=== PATIENT | male | born 1970 | race Caucasian/White ===

== ENCOUNTER 2018-04-22 10:47 | Day surgery (SDC) | payer OTHER ==
[2018-04-18 10:45] VITALS: BMI 27.3
[~2018-04-22 10:47] MED LIST: LACTATED RINGERS 1,000 ML IV SCH; LIDOCAINE 1% 20 ML VIAL (10MG/ML) FOR IV START INTRADERMA PRN
[2018-04-22 11:13] VITALS: RESP 16; TEMP 98
[2018-04-22] MEDS ORDERED: MIDAZOLAM 2 MG/2 ML VIAL ONE (12:59)
[2018-04-22] MEDS ORDERED: LIDOCAINE 1% INJ 10MG/ML (20 ML MDV) ONE (12:59)
[2018-04-22] MEDS ORDERED: PROPOFOL 10 MG/ML 20 ML VIAL IV ONE (12:59)
[2018-04-22] MEDS ORDERED: fentaNYL (PF) 50 MCG/ML 2 ML AMP ONE (12:59)
[2018-04-22 13:35] VITALS: BP 102/66; PULSE 82
--- NOTE | 2018-04-22 13:36 | P.PCN ---
Date of Procedure: 04/22/18 Procedure(s) Performed: Procedure: Colonoscopy and polypectomy. Preoperative diagnosis: Screening for neoplasia. Patient has history of polyps. Postoperative diagnosis: Small/distal sigmoid polyp snared but no large polyps or cancer. Preparation: HalfLytely prep. Sedation: Was provided by anesthesia. Brief clinical history: The patient is a 47-year-old male who is scheduled for this evaluation because of history of polyps. He had a prior colonoscopy around 5 years ago. He has no abdominal complaints, bleeding or anemia. Procedure: With the patient on his left lateral decubitus and after informed consent and adequate sedation, the perianal area was inspected and it did not show any fissures or fistulas. There were no masses felt on digital rectal examination. The Olympus CFQ 160L video colonoscope was then inserted in the rectum in the usual fashion and advanced to the cecum. There was a small/ diminutive polyp noted in the distal sigmoid which was snared and retrieved by suction but there were no large polyps or cancer. The mucosa appeared healthy. No obvious diverticular disease or bleeding. I retroflexed the endoscope in the rectum before the endoscope was withdrawn. The patient tolerated the procedure well. Plan: The patient was reassured. Discussed dietary measures and local care for hemorrhoids. He will follow-up with you as planned and I recommended repeat exam in 5 years.
== END 2018-04-22 14:00 | disposition home or self-care (01) ==
LOC: ORWHC2ENDO 10:47
DX: Z12.11 Encounter for screening for malignant neoplasm of colon (principal); D12.5 Benign neoplasm of sigmoid colon; G89.29 Other chronic pain; M54.9 Dorsalgia, unspecified; Z80.0 Family history of malignant neoplasm of digestive organs; Z79.891 Long term (current) use of opiate analgesic; Z79.899 Other long term (current) drug therapy; Z72.0 Tobacco use
CPT/HCPCS: 45385; J2250; J2001; J3010; J2704; 88305

== ENCOUNTER → 2020-03-07 | Outpatient (CLI) | payer BC, OTHER ==
--- NOTE | 2020-03-07 22:41 | MR ---
MRI CERVICAL SPINE: CLINICAL HISTORY: Neck pain per order. Pain causing left arm soreness numbness and tingling for 3 wee ks extending into fingers per patient. TECHNIQUE: Multiplanar, multisequence imaging of the cervical spine is performed without IV contrast. COMPARISON: Two-view spine x-ray August 17, 2014. FINDINGS: Sagittal images of the cervical spine show the craniocervical junction to appear within nor mal limits. The cervical and upper thoracic spinal cord is normal in course, caliber, and signal. St able grade 1 retrolisthesis C3 on C4. Stable mild disc space narrowing C6-C7 level otherwise the rosa tebral body and intravertebral disk heights are normal. The bone marrow signal intensity is within n ormal limits. Axial images show the C2-C3 level to appear within normal limits. Axial images at C3-C4 level show uncovertebral facet degenerative changes along with right paracentra l disc protrusion mildly facing anterior thecal sac, there is asymmetric moderate left-sided neural f oraminal narrowing. Axial images at C4-C5 level show left greater than right uncovertebral facet degenerative changes sukhjinder aterally causing mild bilateral neural foraminal narrowing. Axial images at the C5-C6 level appear within normal limits. Axial images at the C6-C7 levels with broad-based posterior disc protrusion effaces the anterior thec al sac nearly up to ventral surface of spinal cord with additional left foraminal disc protrusion cau sing asymmetric moderate to severe left-sided neural foraminal narrowing inferiorly axial image 17 an d sagittal image 4. Mild right-sided neural foraminal narrowing is noted. Axial images at C7-T1 level appear within normal limits. IMPRESSION: Stable spondylolisthesis C3-C4 level. Multilevel degenerative changes as detailed above. Most prominent findings noted C3-C4 and C6-C7 level. Attention to C6-C7 level where eccentric disc pr otrusion causes asymmetric [id number] left-sided neural foraminal narrowing and may be accoun ting for patient's left-sided radiculopathy type symptoms.
== END | disposition home or self-care (01) ==
LOC: RADMRIMAIN 21:45
PROVIDERS: ATTEND Internal Medicine
DX: M48.02 Spinal stenosis, cervical region (principal); M50.223 Other cervical disc displacement at C6-C7 level; M43.12 Spondylolisthesis, cervical region; M47.812 Spondylosis without myelopathy or radiculopathy, cervical region
CPT/HCPCS: 72141

== ENCOUNTER 2020-05-19 12:15 | Emergency (ER) | payer BC, OTHER ==
[2020-05-19 12:28] VITALS: RESP 18
--- NOTE | 2020-05-19 13:01 | ED ---
General Adult HPI - General Chief complaint: Syncope Stated complaint: Near Syncope Time Seen by Provider: 05/19/20 12:38 Source: patient Mode of arrival: wheelchair Limitations: no limitations - History of Present Illness Initial comments: Patient presents to the ED for evaluation after having a syncopal episode this afternoon. Patient states that he was with some friends at a bar this afternoon when he began to feel "warm and weak". He states that he then went outside to "get some air" when he reportedly had a syncopal episode. Patient states that he sat himself down on the ground before having his syncopal episode, and he denies trauma/injury or fall. Patient states that his friends witnessed his syncopal episode. Patient admits to drinking one beer while at the bar today and he denies any drug abuse. Patient states that he still feels somewhat weak, but much better than earlier today. Patient states that he ate a donut earlier today. Patient denies having any pain, fever or chills, headache, focal numbness/weakness/neuro deficit, visual changes, neck/back/extremity pain, chest pain, dyspnea, cough or cold symptoms, palpitations, abdominal pain, nausea/vomiting/diarrhea, bloody or melanotic stool, dysuria or urinary symptoms , or any other symptoms or complaints. - Related Data Home Medications Medication Instructions Recorded Confirmed Cyclobenzaprine [Flexeril] 10 mg PO HS 04/18/18 04/22/18 HYDROcodone/APAP 10-325MG [[place] 1 tab PO DIRECTED 04/22/18 04/22/18 10-325] Allergies Allergy/AdvReac Type Severity Reaction Status Date / Time No Known Allergies Allergy Verified 05/19/20 12:28 Review of Systems ROS Statement: Those systems with pertinent positive or pertinent negative responses have been documented in the HPI. ROS Other: All systems not noted in ROS Statement are negative. Past Medical History Past Medical History: Musculoskeletal Disorder Additional Past Medical History / Comment(s): chronic back pain History of Any Multi-Drug Resistant Organisms: None Reported Past Surgical History: No Surgical Hx Reported Additional Past Surgical History / Comment(s): colonoscopy Past Anesthesia/Blood Transfusion Reactions: No Reported Reaction Past Psychological History: No Psychological Hx Reported Smoking Status: Current every day smoker Past Alcohol Use History: Occasional Past Drug Use History: None Reported - Past Family History Father Family Medical History: Cancer Additional Family Medical History / Comment(s): Colon CA General Exam Limitations: no limitations General appearance: alert, in no apparent distress Head exam: Present: atraumatic, normocephalic Eye exam: Present: normal appearance, PERRL, EOMI ENT exam: Present: mucous membranes moist Neck exam: Present: other (Trachea is in midline). Absent: tenderness Respiratory exam: Present: normal lung sounds bilaterally. Absent: respiratory distress, wheezes, rales, rhonchi Cardiovascular Exam: Present: regular rate, normal rhythm, normal heart sounds, other (Normal radial pulses bilaterally) GI/Abdominal exam: Present: soft. Absent: distended, tenderness, guarding Extremities exam: Present: full ROM. Absent: tenderness, pedal edema, calf tenderness Neurological exam: Present: alert, oriented X3, CN II-XII intact. Absent: motor sensory deficit Psychiatric exam: Present: normal affect, normal mood Skin exam: Present: warm, dry, intact, normal color Course Vital Signs 05/19/20 12:26 Temperature 98.0 F Pulse Rate 98 Respiratory 18 Rate Blood Pressure 108/64 O2 Sat by Pulse 93 L Oximetry - Reevaluation(s) Reevaluation #1: 05/19/20 15:34 Patient states that he is now feeling better, and he denies development of any new symptoms while in the ED. Patient remains alert and breathing comfortably. Patient's vital signs are stable. Patient is aware of his test results, and he feels comfortable going home at this time. Patient was counseled about syncope, and he was clearly explained return and follow-up instructions. He was instructed to have a low threshold for return to the ED should he develop new or worsening symptoms. He was clearly explained return and follow-up instructions, and he was instructed to follow up closely with his primary care provider. He feels comfortable with this plan. 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 Patient's EKG, chest x-ray and labs are all fairly unremarkable. Patient is [place] syncope rule negative. I do not feel that hospital admission or any further monitoring is necessary at this time. Patient was counseled about syncope, and he was clearly explained return and follow-up instructions. Patient feels comfortable going home. Will discharge patient home at this time. Patient to get a ride home from the ED today. - Lab Data Result diagrams: 05/19/20 11:05/19/20 13:20 Lab Results 05/19/20 05/19/20 05/19/20 Range/Units :19 05: 13:20 WBC 14.5 H (3.8-10.6) k/uL RBC 5.16 (4.30-5.90) m/uL Hgb 15.1 (13.0-17.5) gm/dL Hct 45.2 (39.0-53.0) % MCV 87.5 (80.0-100.0) fL MCH 29.3 (25.0-35.0) pg MCHC 33.5 (31.0-37.0) g/dL RDW 13.2 (11.5-15.5) % Plt Count 375 (150-450) k/uL MPV 8.0 Neutrophils % 69 % Lymphocytes % 23 % Monocytes % 4 % Eosinophils % 2 % Basophils % 1 % Neutrophils # 10.0 H (1.3-7.7) k/uL Lymphocytes # 3.3 (1.0-4.8) k/uL Monocytes # 0.6 (0-1.0) k/uL Eosinophils # 0.4 (0-0.7) k/uL Basophils # 0.1 (0-0.2) k/uL PT 9.8 (9.0-12.0) sec INR 0.9 (<1.2) APTT 23.6 (22.0-30.0) sec Sodium 137 (137-145) mmol/L Potassium 4.3 (3.5-5.1) mmol/L Chloride 105 (98-107) mmol/L Carbon Dioxide 26 (22-30) mmol/L Anion Gap 6 mmol/L BUN 12 (9-20) mg/dL Creatinine 0.82 (0.66-1.25) mg/dL Est GFR (CKD-EPI)AfAm >90 (>60 ml/min/1.73 sqM) Est GFR (CKD-EPI)NonAf >90 (>60 ml/min/1.73 sqM) Glucose 101 H (74-99) mg/dL Calcium 8.9 (8.4-10.2) mg/dL Magnesium 1.8 (1.6-2.3) mg/dL Total Bilirubin 0.2 (0.2-1.3) mg/dL AST 21 (17-59) U/L ALT 16 (4-49) U/L Alkaline Phosphatase 63 (38-126) U/L Troponin I (0.000-0.034) ng/mL Total Protein 6.6 (6.3-8.2) g/dL Albumin 3.8 (3.5-5.0) g/dL Serum Alcohol <10 mg/dL 05/19/20 Range/Units 13:20 WBC (3.8-10.6) k/uL RBC (4.30-5.90) m/uL Hgb (13.0-17.5) gm/dL Hct (39.0-53.0) % MCV (80.0-100.0) fL MCH (25.0-35.0) pg MCHC (31.0-37.0) g/dL RDW (11.5-15.5) % Plt Count (150-450) k/uL MPV Neutrophils % % Lymphocytes % % Monocytes % % Eosinophils % % Basophils % % Neutrophils # (1.3-7.7) k/uL Lymphocytes # (1.0-4.8) k/uL Monocytes # (0-1.0) k/uL Eosinophils # (0-0.7) k/uL Basophils # (0-0.2) k/uL PT (9.0-12.0) sec INR (<1.2) APTT (22.0-30.0) sec Sodium (137-145) mmol/L Potassium (3.5-5.1) mmol/L Chloride (98-107) mmol/L Carbon Dioxide (22-30) mmol/L Anion Gap mmol/L BUN (9-20) mg/dL Creatinine (0.66-1.25) mg/dL Est GFR (CKD-EPI)AfAm (>60 ml/min/1.73 sqM) Est GFR (CKD-EPI)NonAf (>60 ml/min/1.73 sqM) Glucose (74-99) mg/dL Calcium (8.4-10.2) mg/dL Magnesium (1.6-2.3) mg/dL Total Bilirubin (0.2-1.3) mg/dL AST (17-59) U/L ALT (4-49) U/L Alkaline Phosphatase (38-126) U/L Troponin I <0.012 (0.000-0.034) ng/mL Total Protein (6.3-8.2) g/dL Albumin (3.5-5.0) g/dL Serum Alcohol mg/dL - Radiology Data Radiology results: image reviewed (Chest x-ray is negative) Disposition Clinical Impression: Syncope Disposition: HOME SELF-CARE Condition: Stable Instructions (If sedation given, give patient instructions): Syncope (ED) Additional Instructions: Return to the ER immediately should you develop increased dizziness, fainting/passing out, any significant pain, chest pain, shortness of breath/trou ble breathing, vomiting, or new or worsening symptoms. Follow up closely with your primary care provider. Is patient prescribed a controlled substance at d/c from ED?: No Referrals: Sabrina Merchant MD [Primary Care Provider] - 1-2 days Time of Disposition: 15:39
[2020-05-19] MEDS ORDERED: SODIUM CHLORIDE 0.9% 1,000 ML IV ONE (13:17)
--- NOTE | 2020-05-19 13:46 | XR ---
EXAMINATION TYPE: XR chest 2V DATE OF EXAM: 05/19/2020 COMPARISON: Chest x-ray March 20, 2016 HISTORY: Dizziness and weakness. TECHNIQUE: Frontal and lateral views of the chest are obtained. FINDINGS: Overlying EKG leads are redemonstrated. There is no focal air space opacity, pleural effusi on, or pneumothorax seen. The cardiac silhouette size is within normal limits. The osseous structu res are intact. IMPRESSION: No acute cardiopulmonary process. No significant change from prior.
[2020-05-19 14:24] LABS: Basophils # (A) 0.1 k/uL (0-0.2); Basophils % (A) 1 %; Eosinophils # (A) 0.4 k/uL (0-0.7); Eosinophils % (A) 2 %; HCT 45.2 % (39.0-53.0); HGB 15.1 gm/dL (13.0-17.5); Lymphocytes # (A) 3.3 k/uL (1.0-4.8); Lymphocytes % (A) 23 %; MCH 29.3 pg (25.0-35.0); MCHC 33.5 g/dL (31.0-37.0); MCV 87.5 fL (80.0-100.0); Monocytes # (A) 0.6 k/uL (0-1.0); Monocytes % (A) 4 %; Neutrophils % (A) 69 %; Platelet Count 375 k/uL (150-450); RBC 5.16 m/uL (4.30-5.90); RDW 13.2 % (11.5-15.5); WBC 14.5 k/uL (3.8-10.6)
[2020-05-19 14:36] LABS: INR 0.9 (<1.2); Partial Thromboplastin Time 23.6 sec (22.0-30.0); Prothrombin Time 9.8 sec (9.0-12.0)
[2020-05-19 15:03] LABS: ALT 16 U/L (4-49); AST 21 U/L (17-59); African American GFR (CKD) >90 (>60 ml/min/1.73 sqM); Albumin 3.8 g/dL (3.5-5.0); Alcohol <10 mg/dL; Alkaline Phosphatase 63 U/L (38-126); Anion Gap 6 mmol/L; Blood Urea Nitrogen 12 mg/dL (9-20); Calcium 8.9 mg/dL (8.4-10.2); Carbon Dioxide 26 mmol/L (22-30); Chloride 105 mmol/L (98-107); Glucose 101 mg/dL (74-99); Magnesium 1.8 mg/dL (1.6-2.3); Non-African American GFR(CKD) >90 (>60 ml/min/1.73 sqM); Potassium 4.3 mmol/L (3.5-5.1); Sodium 137 mmol/L (137-145); Total Bilirubin 0.2 mg/dL (0.2-1.3); Total Protein 6.6 g/dL (6.3-8.2)
[2020-05-19 15:52] VITALS: BP 104/88; PULSE 93; TEMP 98.6
== END 2020-05-19 15:51 | disposition home or self-care (01) ==
LOC: EC 12:15
DX: R55 Syncope and collapse (principal); F17.200 Nicotine dependence, unspecified, uncomplicated
CPT/HCPCS: 36415; 71046; 80053; 80320; 83735; 84484; 85025; 85610; 85730; 93005; 99284

== ENCOUNTER → 2023-07-19 | Outpatient (CLI) | payer BC, OTHER ==
--- NOTE | 2023-07-19 10:01 | XR ---
EXAMINATION TYPE: XR cervical spine comp DATE OF EXAM: 07/19/2023 9:44 AM CLINICAL INDICATION:Male, 53 years old with history of M50.30 OTHER CERVICAL DISC DEGENERATION, UNSP CERV; PHH COMPARISON: None TECHNIQUE: The cervical spine was imaged in frontal, lateral, odontoid and bilateral oblique. FINDINGS: The osseous structures show normal alignment without evidence of an acute fracture. There are osteoph ytes noted throughout the cervical spine on the anterior and lateral aspects of the vertebral bodies. The intervertebral disk spaces are narrowed at multiple levels. Pedicles are intact. Soft tissues a re within normal limits. The odontoid appears intact. IMPRESSION: 1. No fracture or dislocation. 2. Mild degenerative disc disease changes of the cervical spine.
--- NOTE | 2023-07-19 11:08 | XR ---
EXAMINATION TYPE: XR lumbosacral spine min 4V DATE OF EXAM: 07/19/2023 9:44 AM CLINICAL INDICATION:Male, 53 years old with history of M50.30 OTHER CERVICAL DISC DEGENERATION, UNSP CERV; PHH COMPARISON: None TECHNIQUE: XR lumbosacral spine min 4V - Frontal, lateral , bilateral oblique and coned in L5-S1 late ral views of the spine. FINDINGS: No evidence of any acute osseous pathology. No evidence of loss of vertebral body height i s seen. There is normal alignment of the lumbar vertebral bodies. Mild scattered disc space narrowing . Multilevel marginal osteophyte formation throughout the visualized spine. There is facet joint arth ropathy throughout the spine. Scattered at least mild neural foraminal stenosis. Sclerosis of the art erial vasculature. IMPRESSION: 1. No acute fracture. 2. [id number] multilevel disc degeneration.
== END | disposition home or self-care (01) ==
LOC: RADXRMAIN 09:23
PROVIDERS: ATTEND Family Medicine
DX: M51.36 Other intervertebral disc degeneration, lumbar region (principal); M50.30 Other cervical disc degeneration, unspecified cervical region
CPT/HCPCS: 72050; 72110

== ENCOUNTER 2024-02-26 07:15 | Day surgery (SDC) | payer BC, OTHER ==
[~2024-02-26 07:15] MED LIST changes: +LIDOCAINE 1% (10MG/ML) FOR IV START INTRADERMA PRN; -LIDOCAINE 1% 20 ML VIAL (10MG/ML) FOR IV START INTRADERMA PRN
[2024-02-26] MEDS: IV FLUID CONTINUATION 1,000 ML IV ONE (07:24)
[2024-02-26 07:41] VITALS: TEMP 97.8
[2024-02-26] MEDS ORDERED: LIDOCAINE 1% INJ 10MG/ML (20 ML MDV) ONE (08:05)
[2024-02-26] MEDS ORDERED: PROPOFOL 10 MG/ML 20 ML VIAL IV ONE (08:05)
--- NOTE | 2024-02-26 08:05 | P.GSHP ---
History of Present Illness H&P Date: 02/26/24 CHIEF COMPLAINT: Colon screen HISTORY OF PRESENT ILLNESS: The patient is a 53-year-old male who presents for colon screen. Lower endoscopy was offered for further evaluation and management. PAST MEDICAL HISTORY: Please see list. PAST SURGICAL HISTORY: Please see list. MEDICATIONS: Please see list. ALLERGIES: Please see list. SOCIAL HISTORY: No illicit drug use FAMILY HISTORY: No reports of Crohn disease or ulcerative colitis. REVIEW OF ORGAN SYSTEMS: CONSTITUTIONAL: No reports of fevers or chills. PHYSICAL EXAM: VITAL SIGNS: Stable GENERAL: Well-developed pleasant in no acute distress. HEENT: No scleral icterus. Extraocular movements grossly intact. Moist buccal mucosa. NECK: Supple without lymphadenopathy. CHEST: Unlabored respirations. Equal bilateral excursions. CARDIOVASCULAR: Regular rate and rhythm. Distal 2+ pulses. ABDOMEN: Soft, nontender, nondistended. MUSCULOSKELETAL: No clubbing, cyanosis, or edema. ASSESSMENT: 1. Colon screen. PLAN: 1. Recommend proceeding with a lower endoscopy Past Medical History Past Medical History: Hyperlipidemia, Musculoskeletal Disorder, Osteoarthritis (OA) Additional Past Medical History / Comment(s): chronic back pain, family hx colon cancer, DDD History of Any Multi-Drug Resistant Organisms: None Reported Past Surgical History: No Surgical Hx Reported Additional Past Surgical History / Comment(s): colonoscopy, Past Anesthesia/Blood Transfusion Reactions: No Reported Reaction Smoking Status: Current every day smoker - Past Family History Father Family Medical History: Cancer Additional Family Medical History / Comment(s): Colon CA Brother(s) Family Medical History: Coronary Artery Disease (CAD) Additional Family Medical History / Comment(s): recently Medications and Allergies Home Medications Medication Instructions Recorded Confirmed Type Cyclobenzaprine [Flexeril] 10 mg PO HS PRN 04/18/18 02/26/24 History HYDROcodone/APAP 10-325MG [[place] 1 tab PO DIRECTED PRN 04/22/18 02/26/24 History 10-325] Rosuvastatin [Crestor] 10 mg PO DAILY 02/21/24 02/26/24 History Unk Multi Vitamin 1 tab PO DAILY 02/21/24 02/26/24 History Allergies Allergy/AdvReac Type Severity Reaction Status Date / Time No Known Allergies Allergy Verified 02/26/24 07:26 Surgical - Exam Vital Signs Temp Resp BP Pulse Ox 97.8 F 16 114/69 95 02/26/24 07:40 02/26/24 07:40 02/26/24 07:40 02/26/24 07:40
--- NOTE | 2024-02-26 08:33 | P.PCN ---
Date of Procedure: 02/26/24 Description of Procedure: PREOPERATIVE DIAGNOSIS: Personal history of colon polyps Family history malignant colon polyps POSTOPERATIVE DIAGNOSIS: Tubular adenoma descending colon Internal hemorrhoids, grade 2 OPERATION: Colonoscopy to the ileocecal valve and appendiceal orifice, cecum Colonoscopy with cold forceps biopsy SURGEON: Modesta Gann MD. ANESTHESIA: MAC. INDICATIONS: The patient is an 53-year-old male who presents family history of malignant colon polyps and personal history of colon polyps. Last colonoscopy 5 years. Benefits and risks were described and informed consent was obtained. DESCRIPTION OF PROCEDURE: The patient had undergone [place] prep. The patient had been brought into the operating room and laid in the left lateral decubitus position. After adequate intravenous sedation, the rectum was examined with 2% lidocaine jelly. The prostate was unremarkable. External hemorrhoids were encountered. The rectal tone was within normal limits. No lesions were palpated in the rectal vault. An Olympus colonoscope was advanced until the cecum, ileocecal valve and geno endiceal orifice were clearly viewed. The prep was good. No large sigmoid diverticulosis was encountered. Colonic polyps were found and removed. No evidence of focal colitis was found. Retroflexion of the scope demonstrated grade 2 internal hemorrhoids without active bleeding or inflammation. The colon was desufflated. The patient had tolerated the procedure well. Withdrawal time was over 6 minutes. FINDINGS: Aronchick preparation quality scale 2 (1-5) Internal hemorrhoids, grade 2 External hemorrhoids, grade 2. No arteriovenous malformations. No large sigmoid diverticulosis Removal of 1 polyps: - Cold forceps biopsy at 50 cm from the anal verge, 3 mm polyp. No focal colitis. RECOMMENDATIONS: Repeat colonoscopy in 3 years, 2026 Plan - Discharge Summary Discharge Rx Participant: No New Discharge Prescriptions: Continue Cyclobenzaprine [Flexeril] 10 mg PO HS PRN PRN Reason: Muscle Pain HYDROcodone/APAP 10-325MG [[place] 10-325] 1 tab PO DIRECTED PRN PRN Reason: Pain Unk Multi Vitamin 1 tab PO DAILY Rosuvastatin [Crestor] 10 mg PO DAILY Discharge Medication List Cyclobenzaprine [Flexeril] 10 mg PO HS PRN 04/18/18 [History] HYDROcodone/APAP 10-325MG [[place] 10-325] 1 tab PO DIRECTED PRN 04/22/18 [History] Rosuvastatin [Crestor] 10 mg PO DAILY 02/21/24 [History] Unk Multi Vitamin 1 tab PO DAILY 02/21/24 [History] Follow up Appointment(s)/Referral(s): Modesta Gann MD [STAFF PHYSICIAN] - As Needed Patient Instructions/Handouts: Colorectal Polyps (GEN) Activity/Diet/Wound Care/Special Instructions: Repeat colonoscopy 3 years, 2026 Discharge Disposition: HOME SELF-CARE
[2024-02-26 08:47] VITALS: BP 101/65; PULSE 76; RESP 18
== END 2024-02-26 09:01 | disposition home or self-care (01) ==
LOC: ORWHC2ENDO 07:15
PROVIDERS: ATTEND Surgery Plastic and Reconstructive Surgery
DX: Z12.11 Encounter for screening for malignant neoplasm of colon (principal); D12.4 Benign neoplasm of descending colon; E78.5 Hyperlipidemia, unspecified; K64.1 Second degree hemorrhoids; M54.50 Low back pain, unspecified; F17.210 Nicotine dependence, cigarettes, uncomplicated; M19.90 Unspecified osteoarthritis, unspecified site; Z80.0 Family history of malignant neoplasm of digestive organs; Z82.49 Family history of ischemic heart disease and other diseases of the circulatory system; Z79.899 Other long term (current) drug therapy
CPT/HCPCS: 45380; 88305